=== PATIENT | female | born 1975 | race Caucasian/White ===

== ENCOUNTER 2017-01-19 09:14 | Observation (INO) | payer OTHER ==
[2017-01-19] VITALS (8 sets, daily range): BP systolic 120–141; BP diastolic 80–100; PULSE 99–122; RESP 17–18; TEMP 97.3–98.9; O2SAT 94–98
[~2017-01-19] VITALS: Ht 167.6 cm; Wt 75.0 kg
[2017-01-19] MEDS ORDERED: SODIUM CHLOR 0.9% 1000 ML INJ 1,000 ML IV ONE (09:45)
[2017-01-19] MEDS ORDERED: SODIUM CHLORIDE 0.9% FLUSH 10 ML FLUSH IVF PRN (09:45)
[2017-01-19 10:07] LABS: AUTOMATED NEUTROPHIL # 6.2 TH/MM3 (1.8-7.7); BASOPHIL # 0.1 TH/MM3 (0-0.2); BASOPHIL % 0.8 % (0.0-2.0); EOSINOPHIL # 0.2 TH/MM3 (0-0.4); EOSINOPHIL % 2.1 % (0.0-4.0); HEMATOCRIT 40.7 % (35.0-46.0); HEMO FLAGS DIFF FINAL; LYMPH % 24.4 % (9.0-44.0); LYMPHOCYTE # 2.2 TH/MM3 (1.0-4.8); MEAN CORPUSCULAR HEMOGLOBIN 30.3 PG (27.0-34.0); MEAN CORPUSCULAR HGB CONC 32.9 % (32.0-36.0); MONO % 2.9 % (0.0-8.0); NEUT % 69.8 % (16.0-70.0); PLATELET COUNT 265 TH/MM3 (150-450); RED BLOOD COUNT 4.42 MIL/MM3 (4.00-5.30); WHITE BLOOD COUNT 8.8 TH/MM3 (4.0-11.0)
[2017-01-19 10:16] LABS: APTT (PATIENT) 23.3 SEC (24.3-30.1); PROTHROMBIN TIME - PATIENT 10.6 SEC (9.8-11.6)
[2017-01-19 10:20] LABS: ANION GAP 10 MEQ/L (5-15); AST (GOT) 68 U/L (15-37); BICARBONATE 20.7 MEQ/L (21.0-32.0); BLOOD UREA NITROGEN 25 MG/DL (7-18); CHLORIDE 108 MEQ/L (98-107); GLOMERULAR FILTRATION RATE 54 ML/MIN (>89); MAGNESIUM 1.9 MG/DL (1.5-2.5); POTASSIUM 4.4 MEQ/L (3.5-5.1); SODIUM (NA) 139 MEQ/L (136-145)
--- NOTE | 2017-01-19 10:20 | RADRPT ---
EXAM DATE/TIME: 01/19/2017 09:48 [facility] COMPARISON: No previous studies available for comparison. INDICATIONS : Short of breath and chest discomfort for 2 weeks, smoker, no chest surgery MEDICAL HISTORY : None. SURGICAL HISTORY : None. ENCOUNTER: Initial ACUITY: 2 weeks PAIN SCORE: 4/10 LOCATION: Bilateral chest FINDINGS: A single AP erect portable view of the chest was obtained. The study is Midinspiratory with crowding of the lung vasculature. The heart size is appears mildly prominent. There is mild hazy opacity in th e perihilar regions and both lung bases with no focal consolidation or effusion. This likely is artif actual and due to the Midinspiratory study. The bony thorax is intact with overlying electrocardiogra m leads. CONCLUSION: 1. Single view Midinspiratory study. 2. Possible cardiomegaly which may be due to the Midinspiratory view. There is no definite acute card iopulmonary disease. Dameon Lira MD on January 19, 2017 at 10:17 Board Certified Radiologist. This report was verified electronically.
[2017-01-19 10:24] LABS: ALKALINE PHOSPHATASE 51 U/L (45-117); ALT (GPT) 169 U/L (10-53); TOTAL BILIRUBIN ADULT 0.4 MG/DL (0.2-1.0)
[2017-01-19] MEDS ORDERED: IOHEXOL 350 MG/ML 10 ML VIAL (for RAD DIAG) IV ONE (11:22)
--- NOTE | 2017-01-19 11:28 | RADRPT ---
EXAM DATE/TIME: 01/19/2017 10:58 [facility] COMPARISON: No previous studies available for comparison. INDICATIONS : Back pain for 3 weeks. IV CONTRAST: 59 cc Omnipaque 350 (iohexol) IV RADIATION DOSE: 23.00 CTDIvol (mGy) MEDICAL HISTORY : Cardiovascular disease. shorness of breath SURGICAL HISTORY : ENCOUNTER: Initial ACUITY: 4 - 6 days PAIN SCALE: 5/10 LOCATION: TECHNIQUE: Volumetric scanning of the chest was performed using a pulmonary embolism protocol MIP images were re constructed. Using automated exposure control and adjustment of the mA and/or kV according to patien t size, radiation dose was kept as low as reasonably achievable to obtain optimal diagnostic quality images. FINDINGS: PULMONARY ARTERIES: No filling defects are seen in the pulmonary arteries through the segmental level. LUNGS: Mild atelectasis adjacent to effusions. PLEURAE: Moderate bilateral pleural effusions. MEDIASTINUM: Mild induration of the central mediastinal fat and mild central mediastinal saul enlargement which i s nonspecific in light of the other findings. MUSCULOSKELETAL: Within normal limits for patient age. MISCELLANEOUS: The visualized upper abdominal organs demonstrate no acute abnormality. CONCLUSION: No evidence of pulmonary embolism Cristobal Lam MD on January 19, 2017 at 11:22 Board Certified Radiologist. This report was verified electronically.
[2017-01-19] MEDS ORDERED: LORazepam 2 MG/ML VIAL IV PUSH ONE (11:45)
--- NOTE | 2017-01-19 11:51 | PD ---
HPI Chief Complaint: Respiratory Symptoms Time Seen by Provider: 09:39 Travel History International Travel<30 days: No Contact w/Intl Traveler<30days: No Traveled to known affect area: No History of Present Illness HPI Patient is a 42 year old female present with 3 week history of SOB rapidly worsening. She follows with Dr. Angulo who ordered outpatient workup which the patient has not had results for yes Patient relates a history of anxiety but otherwise states fairly healthy. Patient denies history of IVDA. She states that she exercises regularly on an exercise bike. She is fairly anxious on arrival stating she is very concerned stating "what did i do". Denies cough , denies CP. Symptoms moderate, gradually worsening. PFSH Past Medical History Anxiety: Yes Cardiovascular Problems: Yes Medical other: Yes (varicous vein repair on upper Rt thigh in 11/2016) ?: Unknown Social History Alcohol Use: Yes (on occasion) Tobacco Use: Yes (2-3 cigs a week) Substance Use: No Allergies-Medications (Allergen,Severity, Reaction): Coded Allergies: Sulfa (Verified Allergy, Unknown, Hives, 01/19/17) Reported Meds & Prescriptions Reported Meds & Active Scripts Active Lo Loestrin Fe 1/10 (Norethindrone-Ethinyl Estradiol-Fe) 1-10 Mg-Mcg Tab 1 Tab PO DAILY Ativan (Lorazepam) 0.5 Mg Tab 0.5 Mg PO BID PRN Review of Systems Except as stated in HPI: all other systems reviewed are Neg Physical Exam Narrative GENERAL: WD/WN anxious. SKIN: Warm and dry. HEAD: Atraumatic. Normocephalic. EYES: Pupils equal and round. No scleral icterus. No injection or drainage. ENT: No nasal bleeding or discharge. Mucous membranes pink and moist. NECK: Trachea midline. No JVD. CARDIOVASCULAR: Regular rhythm with tachycardia. No MGR. 2+ edema to bilateral lower extremities. RESPIRATORY: No accessory muscle use. Clear to auscultation. Breath sounds equal bilaterally. GASTROINTESTINAL: Abdomen soft, non-tender, nondistended. Hepatic and splenic margins not palpable. MUSCULOSKELETAL: Extremities without clubbing, cyanosis, or edema. No obvious deformities. NEUROLOGICAL: Awake and alert. No obvious cranial nerve deficits. Motor grossly within normal limits. Five out of 5 muscle strength in the arms and legs. Normal speech. PSYCHIATRIC: Appropriate mood and affect; insight and judgment normal. Data Data Last Documented VS Vital Signs Date Time Temp Pulse Resp B/P Pulse Ox O2 Delivery O2 Flow Rate FiO2 01/19/17 09:55 97 Room Air 01/19/17 09:55 18 01/19/17 09:27 118 01/19/17 09:18 98.7 141/100 Orders B-Type Natriuretic Peptide (01/19/17 09:44) Complete Blood Count With Diff (01/19/17 09:44) Comprehensive Metabolic Panel (01/19/17 09:44) Magnesium (Mg) (01/19/17 09:44) Prothrombin Time / Inr (Pt) (01/19/17 09:44) Act Partial Throm Time (Ptt) (01/19/17 09:44) Troponin I (01/19/17 09:44) Chest, Single Ap (01/19/17 09:44) Ecg Monitoring (01/19/17 09:44) Iv Access Insert/Monitor (01/19/17 09:44) Oximetry (01/19/17 09:44) Oxygen Administration (01/19/17 09:44) Sodium Chloride 0.9% Flush (Ns Flush) (01/19/17 09:45) Ct Pulmonary Angiogram (01/19/17 09:44) Sodium Chlor 0.9% 1000 Ml Inj (Ns 1000 M (01/19/17 09:45) Iohexol 350 Inj (Omnipaque 350 Inj) (01/19/17 11:22) Lorazepam Inj (Ativan Inj) (01/19/17 11:45) Ed Urine Pregnancytest Poc (01/19/17 11:48) Furosemide Inj (Lasix Inj) (01/19/17 12:00) Admit Order (Ed Use Only) (01/19/17 ) Thyroid Stimulating Hormone (01/19/17 11:46) Echo 2d Comp With Doppler (01/19/17 ) Drug Screen, Random Urine (01/19/17 11:46) Labs Laboratory Tests Test 01/19/17 09:50 White Blood Count 8.8 TH/MM3 Red Blood Count 4.42 MIL/MM3 Hemoglobin 13.4 GM/DL Hematocrit 40.7 % Mean Corpuscular Volume 92.0 FL Mean Corpuscular Hemoglobin 30.3 PG Mean Corpuscular Hemoglobin 32.9 % Concent Red Cell Distribution Width 13.0 % Platelet Count 265 TH/MM3 Mean Platelet Volume 9.9 FL Neutrophils (%) (Auto) 69.8 % Lymphocytes (%) (Auto) 24.4 % Monocytes (%) (Auto) 2.9 % Eosinophils (%) (Auto) 2.1 % Basophils (%) (Auto) 0.8 % Neutrophils # (Auto) 6.2 TH/MM3 Lymphocytes # (Auto) 2.2 TH/MM3 Monocytes # (Auto) 0.3 TH/MM3 Eosinophils # (Auto) 0.2 TH/MM3 Basophils # (Auto) 0.1 TH/MM3 CBC Comment DIFF FINAL Differential Comment Prothrombin Time 10.6 SEC Prothromb Time International 1.0 RATIO Ratio Activated Partial 23.3 SEC Thromboplast Time Sodium Level 139 MEQ/L Potassium Level 4.4 MEQ/L Chloride Level 108 MEQ/L Carbon Dioxide Level 20.7 MEQ/L Anion Gap 10 MEQ/L Blood Urea Nitrogen 25 MG/DL Creatinine 1.10 MG/DL Estimat Glomerular Filtration 54 ML/MIN Rate Random Glucose 127 MG/DL Calcium Level 8.8 MG/DL Magnesium Level 1.9 MG/DL Total Bilirubin 0.4 MG/DL Aspartate Amino Transf 68 U/L (AST/SGOT) Alanine Aminotransferase 169 U/L (ALT/SGPT) Alkaline Phosphatase 51 U/L Total Creatine Kinase 126 U/L Troponin I 0.03 NG/ML B-Type Natriuretic Peptide 972 PG/ML Total Protein 6.0 GM/DL Albumin 3.2 GM/DL Thyroid Stimulating Hormone 2.120 uIU/ML 3rd Gen [facility] Medical Decision Making Medical Screen Exam Complete: Yes Emergency Medical Condition: Yes Interpretation(s) EKG shows Sinus tachycardia with LBBB. No sgarbossa criteria. Abnormal ekg. Differential Diagnosis CHF, Edema, JAYLA, liver disease, PE. Narrative Course Last 24 hours Impressions Chest X-Ray 01/19/17943 Signed Impressions: Service Date/Time: Thursday, January 19, 2017 09:48 - CONCLUSION: 1. Single view Midinspiratory study. 2. Possible cardiomegaly which may be due to the Midinspiratory view. There is no definite acute cardiopulmonary disease. Dameon Lira MD CT Angiography 01/19/17943 Signed Impressions: Service Date/Time: Thursday, January 19, 2017 10:58 - CONCLUSION: No evidence of pulmonary embolism Cristobal Lam MD Patient discussed with Dr. Garvin, concerns for acute new CHF. Given lasix. She does have some minimal elevation in LFT in hepatocellular form I think more likely cause is CHF. May need thoracentesis for additional workup. Dr. Garvin agrees for observation status. Diagnosis Primary Impression: CHF (congestive heart failure) Qualified Code: I50.9 - Congestive heart failure, unspecified congestive heart failure chronicity, unspecified congestive heart failure type Additional Impression: Pleural effusion Admitting Information Admitting Physician Requests: Observation Scripts Norethindrone-Ethinyl Estradiol-Fe (Lo Loestrin Fe 09/09)1-10 Mg-Mcg Tab1 Tab PO DAILY #1 PACK Ref 0 Prov:Michelle Nye PA-C 01/19/17 Lorazepam (Ativan)0.5 Mg Tab0.5 Mg PO BID PRN (ANXIETY) #30 TAB Ref 0 Prov:Michelle Nye PA-C 01/19/17 Condition: Stable Paco Baez MD January 19, 2017 11:51
[2017-01-19] MEDS ORDERED: NALOXONE HCL 0.4 MG/ML AMP IV PRN (12:00)
[2017-01-19] MEDS ORDERED: SODIUM CHLORIDE 0.9% FLUSH 10 ML FLUSH IV FLUSH PRN (12:00)
[2017-01-19] MEDS: DOCUSATE SODIUM 100 MG CAP PO SCH (12:00)
[2017-01-19] MEDS ORDERED: BISACODYL 10 MG SUPP RECTAL PRN (12:00)
[2017-01-19] MEDS ORDERED: ONDANSETRON HCL 4 MG/2 ML VIAL IVP PRN (12:00)
[2017-01-19] MEDS ORDERED: FUROSEMIDE 40 MG/4 ML VIAL IV PUSH ONE (12:00)
--- NOTE | 2017-01-19 14:31 | HHI.HP ---
cc: Nella Kumar MD [facility] Primary [facility] Physician Nella Kumar MD Admission Diagnosis New CHF, Pleural Effusions. Diagnoses: Chief Complaint: shortness of breath Travel History International Travel<30 Days: No Contact w/Intl Traveler <30 Da: No Traveled to Known Affected Are: No History of Present Illness Written by Michelle Nye, acting as scribe for Dr. Garvin on 01/19/17 at 14: 40. 42-year-old female with history of anxiety, tobacco use, presents with a 2-3 week history of shortness of breath. The patient denies any recent illness, fevers/chills, cough, or sick contacts. She states over the past 2-3 weeks she has become short of breath, much worse over the past 2 days. She reports severe orthopnea, unable to lie flat or get comfortable in bed. Denies dyspnea on exertion, paroxysmal nocturnal dyspnea, or weight gain. She has noticed some mild leg swelling. She denies chest pains but does have diffuse upper posterior thoracic pain associated with her shortness of breath, described as a "muscular " pain/tightness, worse when trying to lie flat. The patient traveled to [place], 2.5hr flight recently and had some increased leg edema afterwards. She denies any abrupt ascending/descending altitudes or scuba diving. She denies any prior cardiac work up. She did go to her PCP Dr. Kumar's office, seen by the PA, labs were ordered but were still pending as of this morning. The patient only takes Lo Loestrin Fe and Ativan prn. Denies any recent antibiotic use or changes to medications. Denies snoring at night or any hx of sleep apnea. She smokes 3-4 cigarettes per day. Her father has a history of heart disease that started in his 40s. Since her arrival to the ER, labs remarkable for BNP [address]-PA remarkable for moderate bilateral pleural effusions; no pulmonary embolism. She has been given IV Lasix 40mg x1 and she feels her breathing is much improved however still short of breath. Review of Systems Except as stated in HPI: all other systems reviewed are Neg Past Family Social History Past Medical History Anxiety GERD Past Surgical History Varicose vein repair right upper thigh November2016 Tympanostomy as a child Dental extractions Reported Medications Lo Loestrin Fe Ativan 0.5mg q12h prn Allergies: Coded Allergies: Sulfa (Verified Allergy, Unknown, Hives, 01/19/17) Active Ordered Medications Current Medications Medications (Trade) Dose Ordered Sig/Wallace Route Start Time Stop Time Status Last Admin (NS Flush) 2 ml UNSCH PRN IV FLUSH 01/19/17 12:00 (NS Flush) 2 ml BID IV FLUSH 01/19/17 21:00 (Tylenol) 650 mg Q4H PRN PO 01/19/17 12:00 (Zofran Inj) 4 mg Q6H PRN IVP 01/19/17 12:00 (Dulcolax Supp) 10 mg DAILY PRN RECTAL 01/19/17 12:00 (Colace) 100 mg Q12H PO 01/19/17 12:00 (Narcan Inj) 0.4 mg UNSCH PRN IV 01/19/17 12:00 (Pneumovax-23 Inj) 25 mcg ONCE ONCE IM 01/20/17 10:00 01/20/17 10:01 Family History Father with heart disease that started in his 40s with NH and CHF, still living Social History Smokes tobacco,3-4 cigarettes per day Occasional alcohol use, 2 glasses of wine per day on the weekend Denies illicit drug use Works as a deputy for [email or web address] Physical Exam Vital Signs Vital Signs Date Time Temp Pulse Resp B/P Pulse Ox O2 Delivery O2 Flow Rate FiO2 01/19/17 12:13 114 18 140/94 95 Room Air 01/19/17 09:55 97 Room Air 01/19/17 09:55 18 98 Room Air 01/19/17 09:27 118 18 99 Room Air 01/19/17 09:18 98.7 122 18 141/100 97 Physical Exam GENERAL: Well-nourished, well-developed middle aged female patient in [place]. SKIN: Warm and dry. No rash. HEAD: Normocephalic. Atraumatic. EYES: Pupils equal and round. No scleral icterus. No injection or drainage. ENT: No nasal bleeding or discharge. Mucous membranes pink and moist. NECK: Supple. Trachea midline. CARDIOVASCULAR: Regular rate and rhythm. S1, S2 noted. No murmur appreciated. RESPIRATORY: No accessory muscle use. Clear to auscultation. Breath sounds equal bilaterally. GASTROINTESTINAL: Abdomen soft, non-tender, nondistended. Normoactive bowel sounds x4. MUSCULOSKELETAL: No obvious deformities. Trace bilateral lower extremity edema. NEUROLOGICAL: Awake and alert. No obvious cranial nerve deficits. Motor grossly within normal limits. 5/5 muscle strength in bilateral upper and lower extremities. Normal speech. PSYCHIATRIC: Slightly anxious mood; insight and judgment normal. Laboratory Laboratory Tests Test 01/19/17 09:50 White Blood Count 8.8 Red Blood Count 4.42 Hemoglobin 13.4 Hematocrit 40.7 Mean Corpuscular Volume 92.0 Mean Corpuscular Hemoglobin 30.3 Mean Corpuscular Hemoglobin 32.9 Concent Red Cell Distribution Width 13.0 Platelet Count 265 Mean Platelet Volume 9.9 Neutrophils (%) (Auto) 69.8 Lymphocytes (%) (Auto) 24.4 Monocytes (%) (Auto) 2.9 Eosinophils (%) (Auto) 2.1 Basophils (%) (Auto) 0.8 Neutrophils # (Auto) 6.2 Lymphocytes # (Auto) 2.2 Monocytes # (Auto) 0.3 Eosinophils # (Auto) 0.2 Basophils # (Auto) 0.1 CBC Comment DIFF FINAL Differential Comment Prothrombin Time 10.6 Prothromb Time International 1.0 Ratio Activated Partial 23.3 Thromboplast Time Sodium Level 139 Potassium Level 4.4 Chloride Level 108 Carbon Dioxide Level 20.7 Anion Gap 10 Blood Urea Nitrogen 25 Creatinine 1.10 Estimat Glomerular Filtration 54 Rate Random Glucose 127 Calcium Level 8.8 Magnesium Level 1.9 Total Bilirubin 0.4 Aspartate Amino Transf 68 (AST/SGOT) Alanine Aminotransferase 169 (ALT/SGPT) Alkaline Phosphatase 51 Total Creatine Kinase 126 Troponin I 0.03 B-Type Natriuretic Peptide 972 Total Protein 6.0 Albumin 3.2 Thyroid Stimulating Hormone 2.120 3rd Gen Result Diagram: 01/19/1750 01/19/1750 Imaging Last Impressions Chest X-Ray 01/19/1744 Signed Impressions: Service Date/Time: Thursday, January 19, 2017 09:48 - CONCLUSION: 1. Single view Midinspiratory study. 2. Possible cardiomegaly which may be due to the Midinspiratory view. There is no definite acute cardiopulmonary disease. Dameon Lira MD CT Angiography 01/19/17 0944 Signed Impressions: Service Date/Time: Thursday, January 19, 2017 10:58 - CONCLUSION: No evidence of pulmonary embolism Cristobal Lam MD Assessment and Plan Problem List: (1) New onset of congestive heart failure ICD Code: I50.9 Status: Acute (2) Bilateral pleural effusion ICD Code: J90 Status: Acute Assessment and Plan 42-year-old female with history of anxiety, tobacco use, presents with a 2-3 week history of shortness of breath. Acute New Onset CHF: Unclear etiology. BNP elevated at 972. CT-PA images reviewed, shows moderate bilateral pleural effusions. S/p IV Lasix 40mg x1 in the ED with moderate relief. Continue IV Lasix 20mg bid. Initial troponin negative, will continue to trend serial cardiac enzymes and EKGs. EKG reviewed, shows sinus tachycardia HR 120, with LBBB, no previous EKG to compare. Check lipid panel and HgbA1c. Check echocardiogram. Monitor on telemetry. Consider nuclear stress test. Consider cardiology consult depending on findings. Pleural Effusions: suspect secondary to above. Continue diuresis as above. O2 sat stable on room air. Consult pulmonology. Transaminitis: AST 68, ALT 169. Suspect hepatic congestion with heart failure as above. Monitor LFTs. Avoid hepatotoxins including statin at this time. Dehydration: BUN elevated at 25, Cr 1.1. Monitor Is&Os. Check UA. On diuresis as above for CHF, Monitor renal function. Anxiety: chronic, patient takes Ativan 0.5mg prn at home. Continue with IV Ativan 1mg q6h prn. Tobacco Use: counselled on cessation. DVT Prophylaxis: teds/SCDs This note was transcribed by krish Nye. I, Dr. Miguel Garvin personally performed the history, physical exam, and medical decision making; and confirmed the accuracy of the information in the transcribed note. Authenticated by Dr. Miguel Garvin on 01/19/17 at 18:46. Discussed Condition With Patient, patient's , ER Michelle Reed PA-C January 19, 2017 14:31 Miguel Garvin MD January 19, 2017 18:46
[2017-01-19] MEDS ORDERED: LORazepam 2 MG/ML VIAL IV PUSH PRN (15:15)
[2017-01-19] MEDS ORDERED: LORA-392 PO (15:37)
[2017-01-19] MEDS ORDERED: LO LTAB PO (15:37)
--- NOTE | 2017-01-19 16:15 | EC ---
Study Study Date:01/19/2017 STUDY CONCLUSIONS SUMMARY - Left ventricle: The cavity size was dilated. Wall thickness was normal. Systolic function was severely reduced by visual assessment. The estimated ejection fraction was in the range of 20% to 25%. Diffuse hypokinesis. - Mitral valve: Moderate regurgitation. - Tricuspid valve: Mild regurgitation. - Pulmonary arteries: PA peak pressure: 39mm Hg (S). - Pericardium, extracardiac: A small pericardial effusion was identified posterior to the heart. If LV function is below 40, please consider prescribing an ACEI or ARB or document rationale for non-use. PROCEDURE DATA STUDY STATUS: Elective. Procedure: Transthoracic echocardiography. Image quality was good. Scanning was performed from the parasternal, apical, and subcostal acoustic windows. Study completion: The patient tolerated the procedure well. Transthoracic echocardiography. M-mode, complete 2D, complete spectral Doppler, and color Doppler. Patient status: Inpatient. CARDIAC ANATOMY LEFT VENTRICLE: The cavity size was dilated. Wall thickness was normal. Systolic function was severely reduced by visual assessment. The estimated ejection fraction was in the range of 20% to 25%. Diffuse hypokinesis. AORTIC VALVE: Trileaflet; normal thickness leaflets. Doppler: Transvalvular velocity was within the normal range. There was no stenosis. No regurgitation. AORTA: Aortic root: The aortic root was normal in size. MITRAL VALVE: Structurally normal valve. Doppler: Transvalvular velocity was within the normal range. There was no evidence for stenosis. Moderate regurgitation. LEFT ATRIUM: The atrium was normal in size. RIGHT VENTRICLE: The cavity size was normal. Wall thickness was normal. PULMONIC VALVE: Doppler: Transvalvular velocity was within the normal range. There was no evidence for stenosis. No regurgitation. TRICUSPID VALVE: Structurally normal valve. Doppler: Transvalvular velocity was within the normal range. Mild regurgitation. PULMONARY ARTERY: Systolic pressure was at the upper limits of normal. RIGHT ATRIUM: The atrium was normal in size. PERICARDIUM: A small pericardial effusion was identified posterior to the heart. SYSTEMIC VEINS: Inferior vena cava: The vessel was normal in size. BASIC MEASUREMENTS ADULT Normal Left ventricle LV internal dimension, ED, chordal level, *53.9 mm 43-52 PLAX LV internal dimension, ES, chordal level, *48.8 mm 23-38 PLAX Fractional shortening, chordal level, PLAX *9 % >29 LV posterior wall thickness, ED 9.31 mm IVS/LVPW ratio, ED 0.94 <1.3 Ventricular septum Septal thickness, ED 8.79 mm Aortic valve Leaflet separation 20 mm 15-26 Right ventricle RV internal dimension, ED, PLAX 30.7 mm 19-38 BASIC MEASUREMENTS ADULT Normal Aortic valve Leaflet separation 20 mm 15-26 Aorta Root diameter, ED 31 mm 20-37 Left atrium Anterior-posterior dimension, ES *45 mm 19-40 LA/aortic root ratio 1.45 DOPPLER MEASUREMENTS ADULT Normal Main pulmonary artery Pressure, S *39 mm Hg =30 Tricuspid valve Regurgitant peak velocity 271 cm/s Peak RV-RA gradient, S 29 mm Hg Systemic veins Estimated CVP 10 mm Hg Right ventricle RV pressure, S *39 mm Hg <30 LEGEND: Mean values are shown as u=mean value. Asterisk (*) kaur values outside specified normal range. Prepared and signed by Jas Mills [id number]
[2017-01-19] MEDS: FUROSEMIDE 20 MG/2 ML VIAL IV PUSH SCH (18:21)
[2017-01-19 18:45] LABS: BACTERIA, URINE RARE /hpf; BLOOD, URINE NEG (NEG); COMMENT (UR) CULT NOT INDICATED; CULTURE IF INDICATED CULT NOT INDICATED; GLUCOSE,URINE NEG (NEG); KETONE, URINE NEG (NEG); NITRITE,URINE NEG (NEG); SQUAMOUS EPITHELIAL CELL URINE 3 /hpf (0-5); URINE COLOR LIGHT-YELLOW (YELLW/STRAW)
[2017-01-19 18:53] LABS: AMPHETAMINE, URINE NEG (NEG); BARBITURATES, URINE NEG (NEG); COCAINE, URINE NEG (NEG)
[2017-01-19 19:43] LABS: CREATINE KINASE 145 U/L (26-192)
[2017-01-19 19:55] LABS: CKMB 1.1 NG/ML (0.5-3.6)
[2017-01-19] MEDS: SODIUM CHLORIDE 0.9% FLUSH 10 ML FLUSH IV FLUSH SCH (20:32)
[2017-01-19] MEDS: ACETAMINOPHEN 325 MG TAB PO PRN (20:33)
--- NOTE | 2017-01-19 21:59 | MB ---
cc: KARL HASKINS DATE OF CONSULTATION 01/19/[address] Garvin REASON FOR CONSULTATION Evaluate for pleural effusion. HISTORY OF THE PRESENT ILLNESS Ms. Espinosa is a 42-year-old female with history of anxiety, gastroesophageal reflux disease. The patient came to the hospital with 2-3 weeks history of shortness of breath. Prior to that she was doing very well. She had some cold-like symptoms, more so allergy symptoms, swelling around her nose and itching in the eyes. Did not have fever or chills. Did not have any chest pain. She felt that she could not take a deep enough breath because of the pressure in her throat not in the chest. Did not have any chest pain. She has orthopnea and paroxysmal nocturnal dyspnea. With these symptoms she came to the hospital. She had a workup done. Her chest x-ray shows no acute cardiopulmonary process. CT of the chest shows no pleural effusion. It does show bilateral pleural effusion. It does not show any pulmonary embolism but it shows bilateral pleural effusions. LABORATORY DATA Her CBC showed a white blood cell count 8.8, hemoglobin 13.4, hematocrit 40.7, MCV 92, platelets 265. Sodium 139, potassium 4.4, chloride 108, CO2 20, BUN 25, creatinine 1.10. INR is 1.0. BNP 972. Troponin 0.03. She had an echocardiogram done which shows her RVSP 39, ejection fraction is decreased to 20-25%. PAST MEDICAL HISTORY Significant for: History of anxiety and depression. MEDICATIONS At home she takes: 1. Ativan. 2. She was taking one hormone pill. Currently she is takin. Lasix 20 mg a day. 2. Lorazepam 1 mg q.6h p.r.n. 3. Lasix IV. ALLERGIES SHE IS ALLERGIC TO SULFA. SOCIAL HISTORY She has history of smoking three to four cigarettes a day. Drinks socially. No drug use. 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 FAMILY HISTORY She is . She has three children. Has four siblings. Father has heart problems. Both parents are alive. REVIEW OF SYSTEMS Her weight is stable. She is trying to lose weight and has lost about 10 pounds weight. No headache or dizziness. No DVT, pulmonary emboli. No seizure, stroke or epilepsy. PHYSICAL EXAMINATION GENERAL: Well-built, well-nourished female, anxious, not in acute distress. VITAL SIGNS: Blood pressure 124/90, heart rate 115, respiration 18, temperature 98.9. HEENT: Examination pupils are equal and reactive. Oral mucosa, nasal mucosa normal. NECK: Supple. JVP is raised. CHEST: Breath sounds decreased at the bases more so on the right base and the left has a few rales. CARDIOVASCULAR: S1-S2 normal. She has S3 gallop. ABDOMEN: Soft, nontender, nondistended. Bowel sounds are present. EXTREMITIES: Trace pedal edema. IMPRESSION 1. Small bilateral pleural effusions likely from CHF. 2. New onset congestive heart failure. 3. Cardiomyopathy. 4. Mild pulmonary hypertension. PLAN She will need cardiac evaluation for her new congestive heart failure and cardiomyopathy. Will diurese her. Monitor her pleural effusion. If the effusion increases then we will consider thoracentesis. Further treatment will depend on the course in the hospital. Thank you Dr. Garvin for this consultation. MD JOSE Granda/LASHAWN /5:32 PM /9:38 PM
[2017-01-20 04:53] VITALS: BP 118/80; PULSE 94; RESP 17; TEMP 97.3; O2SAT 93
[2017-01-20 08:00] VITALS: BP 136/94; PULSE 107; RESP 17; TEMP 97.7; O2SAT 96
[2017-01-20] MEDS: ACETAMINOPHEN 325 MG TAB PO PRN (08:03)
[2017-01-20 08:04] LABS: BICARBONATE 24.1 MEQ/L (21.0-32.0); HDL CHOLESTEROL 45.7 MG/DL (40.0-60.0); POTASSIUM 3.6 MEQ/L (3.5-5.1)
[2017-01-20] MEDS: SODIUM CHLORIDE 0.9% FLUSH 10 ML FLUSH IV FLUSH SCH (08:05)
[2017-01-20] MEDS: FUROSEMIDE 20 MG/2 ML VIAL IV PUSH SCH (08:05)
--- NOTE | 2017-01-20 08:13 | MB ---
cc: TRENT ESPARZA MD DATE OF CONSULTATION 01/20/2017 HISTORY This is a 42-year-old woman who has been in the hospital with shortness of breath. She noted approximately three weeks ago that she had some problems with what she felt might be symptoms of an impending upper respiratory infection. This resolved, but approximately two weeks ago began having some shortness of breath with exertion. She saw her primary care physician and blood work was initiated. However yesterday she continued to have problems with shortness of breath and not feeling well and has come to the emergency department. Chest x-ray in the emergency department shows some mild bilateral pleural effusions. No robinson congestive failure was present. Her BMP was elevated at 952. An echocardiogram was done revealing an EF of 20-25%. We have been asked to see her in that regard. No chest pain has been present. She denies any prior history of heart disease. Her risk factors for coronary disease are significant only for a father who had premature coronary disease with initiation of heart disease in his 40s culminating with several bouts of congestive failure, and a four-vessel bypass. He, however, is still alive at age 90. The patient herself smokes three to four cigarettes per day. She has no history of hypertension, diabetes or hyperlipidemia. She drinks two glasses of wine on the weekends. She does not use recreational drugs. CURRENT MEDICATIONS Include only Ativan and Loestrin. ALLERGIES SULFA PAST SURGICAL HISTORY Significant for a varicose vein repair right upper thigh last month and it is somewhat tender. A CTA was done which was otherwise unremarkable. PHYSICAL EXAM On physical exam, she is awake and alert. She is in no acute distress. VITAL SIGNS: Her blood pressure is 118/80, pulse is 90 and regular. NECK: There is no neck vein distension. LUNGS: Clear. CARDIOVASCULAR: Exam reveals regular rate and rhythm. There is no significant murmur present. No gallop was noted. ABDOMEN: Soft. There is no tenderness. EXTREMITIES: Reveal no edema. There is some mild tenderness to the inside of her right thigh, however, there is no evidence for redness, cords or swelling. ASSESSMENT/PLAN The patient has a cardiomyopathy likely nonischemic and probably viral in nature. At this point in time, she is stable. She has a child graduating from school [facility] [employer] and wishes to attend that ceremony. I think that would be permissible with further workup as an outpatient to rule out the possibility of ischemic disease. In the meantime, she has been started on Lasix 20 mg daily and I certainly agree with that dose. I have added lisinopril 5 mg daily to her regimen. We will see her back in the office next week and had discuss life vest, as well as hopefully adding carvedilol to her regimen to be able to maximize her cardiomyopathy regimen. Thank you for allowing me to see her in consultation. MD JASON Zaidi/PASQUALE /7:38 AM /7:56 AM
[2017-01-20] MEDS ORDERED: LISINOPRIL 5 MG TAB PO SCH (09:00)
--- NOTE | 2017-01-20 09:34 | HHI.PR ---
Subjective Remarks Follow-up for new onset CHF. The patient is seen with significant other at bedside. The patient has no complaints today. She denies any chest pain, shortness breath, or lower extremity swelling. She wants to follow up with cardiology as outpatient. All questions answered. Objective Vitals Vital Signs Date Time Temp Pulse Resp B/P Pulse Ox O2 Delivery O2 Flow Rate FiO2 01/20/17 08:00 97.7 107 17 136/94 96 01/20/17 04:53 97.3 94 17 118/80 93 01/19/17 23:43 98.1 99 17 120/80 96 01/19/17 23:37 103 01/19/17 21:26 94 01/19/17 19:53 97.3 108 18 122/87 96 01/19/17 16:29 98.9 115 18 124/90 97 01/19/17 12:13 114 18 140/94 95 Room Air 01/19/17 09:55 97 Room Air 01/19/17 09:55 18 98 Room Air 01/19/17 09:27 118 18 99 Room Air I/O 01/19/17 01/19/17 01/19/17 01/20/17 01/20/17 01/20/17 06:59 14:59 22:59 06:59 14:59 22:59 Intake Total 480 ml Balance 480 ml Intake Oral 480 ml Result Diagram: 01/19/17 0950 01/20/17 0555 Imaging Last Impressions Chest X-Ray 01/19/17943 Signed Impressions: Service Date/Time: Thursday, January 19, 2017 09:48 - CONCLUSION: 1. Single view Midinspiratory study. 2. Possible cardiomegaly which may be due to the Midinspiratory view. There is no definite acute cardiopulmonary disease. Dameon Lira MD CT Angiography 01/19/17943 Signed Impressions: Service Date/Time: Thursday, January 19, 2017 10:58 - CONCLUSION: No evidence of pulmonary embolism Cristobal Lam MD Objective Remarks GENERAL: Well-developed well-nourished. In no acute distress. SKIN: Warm and dry. No lesions noted. HEENT: Normocephalic. Pupils equal and round. Mucous membranes pink and moist. CARDIOVASCULAR: Regular rate and rhythm. No murmur appreciated. RESPIRATORY: No accessory muscle use. Clear to auscultation. Slightly diminished breath sounds in the right base. GASTROINTESTINAL: Abdomen soft, non-tender, nondistended. Bowel sounds x4. MUSCULOSKELETAL: No obvious deformities. No clubbing or cyanosis. Trace edema. NEUROLOGICAL: Awake and alert. No focal neurological deficits. Moves upper and lower extremities spontaneously. Normal speech. PSYCHIATRIC: Slightly anxious mood and affect; insight and judgment normal. A/P Problem List: (1) New onset of congestive heart failure ICD Code: I50.9 Status: Acute (2) Bilateral pleural effusion ICD Code: J90 Status: Acute Assessment and Plan 42-year-old female with history of anxiety, tobacco use, presents with a 2-3 week history of shortness of breath. Acute New Onset CHF: Unclear etiology. BNP elevated at 972. CT-PA reviewed, shows moderate bilateral pleural effusions. Symptoms improving with IV diuresis , continue Lasix. Troponin negative 3. Liver profile essentially within normal limits. Hemoglobin A1c pending. Echocardiogram shows severely reduced systolic function 2024 %. Cardiology consulted, discussed with Dr. Mendoza. Continue diuresis and start lisinopril. Dr. Mendoza to follow the patient in the office for addition of beta karina and consideration for ischemic workup. Monitor on telemetry. Educated on fluid and sodium intake. Pleural Effusions: suspect secondary to above. Continue diuresis as above. O2 sat stable on room air. Consulted pulmonology, recommended cardiology evaluation and treatment for CHF. Transaminitis: AST 68, ALT 169. Suspect hepatic congestion with heart failure as above. Monitor LFTs, repeat CMP as outpatient. Avoid hepatotoxins including statin at this time. Dehydration: BUN elevated at 25, Cr 1.1. Monitor Is&Os. UA are all clear. Renal function improved with diuresis, likely cardiorenal. Anxiety: chronic, patient takes Ativan 0.5mg prn at home, continue. Tobacco Use: counselled on cessation. DVT Prophylaxis: teds/SCDs Discharge Planning Discharge patient to home Condition on discharge: Improved Heart healthy Diet as tolerated Regular activity Rx written: Lasix, lisinopril Follow-up with primary care physician and cardiology Cirilo Myers January 20, 2017 09:34
[2017-01-20] MEDS ORDERED: FURO20TA PO (09:35)
[2017-01-20] MEDS ORDERED: LISI-519 PO (09:35)
[2017-01-20] MEDS ORDERED: PNEUMOCOCCAL POLYVALENT INJ 25 MCG/0.5 ML SYR IM ONE (10:00)
[2017-01-20 11:42] VITALS: BP 113/74; PULSE 106; RESP 18; TEMP 97.8; O2SAT 96
[2017-01-20] MEDS: DOCUSATE SODIUM 100 MG CAP PO SCH ×2 (12:41)
--- NOTE | 2017-01-20 15:44 | EKG ---
Date Performed: 01/19/2017 Time Performed: 16:25:53 PTAGE: 42 years EKG: SINUS TACHYCARDIA LEFT ATRIAL ENLARGEMENT LEFT BUNDLE BRANCH BLOCK ABNORMAL ECG Compared to prior tracing no significant change PREVIOUS TRACING 01/19/2017 09.33.47 DOCTOR: Sergei Deleon Interpretating Date/Time 01/20/2017 15:43:56
--- NOTE | 2017-01-20 15:44 | EKG ---
Date Performed: 01/19/2017 Time Performed: 21:41:59 PTAGE: 42 years EKG: SINUS TACHYCARDIA LEFT ATRIAL ENLARGEMENT MARKED LEFT AXIS DEVIATION LEFT BUNDLE BRANCH BLO CK ABNORMAL ECG Compared to prior tracing no significant change PREVIOUS TRACING : 01/19/2017 16.25 DOCTOR: Sergei Deleon Interpretating Date/Time 01/20/2017 15:44:12
--- NOTE | 2017-01-20 15:44 | EKG ---
Date Performed: 01/19/2017 Time Performed: 09:33:47 PTAGE: 42 years EKG: SINUS TACHYCARDIA MARKED LEFT AXIS DEVIATION LEFT BUNDLE BRANCH BLOCK ABNORMAL ECG NO PREVIOUS TRACING : DOCTOR: Sergei Deleon Interpretating Date/Time 01/20/2017 15:43:28
[2017-01-20 16:43] LABS: HEMOGLOBIN A1a 1.3 %; HEMOGLOBIN A1b 0.9 %; HEMOGLOBIN Ao 83.7 %; HEMOGLOBIN LA1C 2.2 %; HEMOGLOBIN P3 5.1 %
== END 2017-01-20 12:44 | disposition home or self-care (01) ==
LOC: NEPE 09:14 → NEDA 11:51 → NEPGCP 13:11
PROVIDERS: ADMIT Internal Medicine; ATTEND Internal Medicine
DX: I50.9 Heart failure, unspecified (principal); I42.9 Cardiomyopathy, unspecified; I27.2 Other secondary pulmonary hypertension; F41.9 Anxiety disorder, unspecified; F17.210 Nicotine dependence, cigarettes, uncomplicated; R74.0 Nonspecific elevation of levels of transaminase and lactic acid dehydrogenase [LDH]; E86.0 Dehydration; F32.9 Major depressive disorder, single episode, unspecified; K21.9 Gastro-esophageal reflux disease without esophagitis; Z88.2 Allergy status to sulfonamides
CPT/HCPCS: 71010; 71275; 80048; 80053; 80061; 80307; 81001; 82550; 82552; 83036; 83735; 83880; 84443; 84484; 85025; 85610; 85730; 90732; 93005; 93306; 96360; 99285; G0378; J1940; J2060; J7030; Q9967

== ENCOUNTER 2017-07-17 08:55 | Day surgery (SDC) | payer OTHER ==
[~2017-07-17] VITALS: Ht 167.6 cm; Wt 63.4 kg
[~2017-07-17 08:55] MED LIST: FURO20TA PO; LISI-519 PO; LO LTAB PO; LORA-392 PO
[2017-07-17] MEDS ORDERED: IOHEXOL 350 MG/ML 100 ML BTL (for Cath Lab) OTHER ONE (08:56)
[2017-07-17 10:00] VITALS: BP 125/74; PULSE 80; RESP 18; TEMP 98.4; O2SAT 100
[2017-07-17] MEDS ORDERED: CARV6.25 PO (10:11)
[2017-07-17] MEDS ORDERED: SACU1TAB PO (10:11)
[2017-07-17 10:16] LABS: AUTOMATED NEUTROPHIL # 5.7 TH/MM3 (1.8-7.7); BASOPHIL % 0.3 % (0.0-2.0); EOSINOPHIL # 0.1 TH/MM3 (0-0.4); EOSINOPHIL % 1.9 % (0.0-4.0); HEMATOCRIT 38.8 % (35.0-46.0); HEMO FLAGS DIFF FINAL; LYMPH % 18.7 % (9.0-44.0); LYMPHOCYTE # 1.4 TH/MM3 (1.0-4.8); MEAN CELL VOLUME 92.1 FL (80.0-100.0); MEAN CORPUSCULAR HEMOGLOBIN 31.4 PG (27.0-34.0); MEAN CORPUSCULAR HGB CONC 34.1 % (32.0-36.0); MONO % 3.8 % (0.0-8.0); NEUT % 75.3 % (16.0-70.0); PLATELET COUNT 261 TH/MM3 (150-450); RED BLOOD COUNT 4.21 MIL/MM3 (4.00-5.30); WHITE BLOOD COUNT 7.6 TH/MM3 (4.0-11.0)
[2017-07-17 10:26] LABS: APTT (PATIENT) 24.4 SEC (24.3-30.1); PROTHROMBIN TIME - PATIENT 10.6 SEC (9.8-11.6)
[2017-07-17 10:35] LABS: ANION GAP 8 MEQ/L (5-15); BICARBONATE 25.4 MEQ/L (21.0-32.0); BLOOD UREA NITROGEN 13 MG/DL (7-18); CHLORIDE 106 MEQ/L (98-107); GLOMERULAR FILTRATION RATE 65 ML/MIN (>89); POTASSIUM 4.2 MEQ/L (3.5-5.1); SODIUM (NA) 139 MEQ/L (136-145)
[2017-07-17 10:40] LABS: BETA HCG QUANT LESS THAN 1 MIU/ML (0-5)
[2017-07-17] MEDS ORDERED: NS 1000P @30 MLS/HR (KVO) IV SCH (11:00)
[2017-07-17] MEDS ORDERED: HEPARIN-NS/PF INJ 1,000 ML ONE (12:38)
[2017-07-17] MEDS ORDERED: MIDAZOLAM HCL 5 MG/5 ML VIAL ONE (12:38)
[2017-07-17] MEDS ORDERED: MIDAZOLAM HCL 2 MG/2 ML VIAL ONE (13:44)
--- NOTE | 2017-07-17 14:23 | CATHPROC ---
[employer] HIS Report Study Information Study Number Admission Scheduled Start Study Start [id number] Jul 17 2017 8:55AM 07/17/2017 Jul 17 2017 12:36PM [place] Service Cardiac Catheterization Admit Source Facility Department Other [facility] - Finishing Operator Physician and Clinical Staff Initial Emma Zapata Liquefier Kendall RN, Honorio Recorder Ivy Jason,RT(R) (BS) Scrub Nany Meléndez,RT(R) Procedures Performed Procedure Location (Site) Vessel Name Angiogram LV LV Ventricle Coronary Angiograms LCA Left Coronary Coronary Angiograms RCA Right Coronary Equipment Time Traffic Analysis Technician Description Size Mfg Part Number Used/Scraped [id number] 13:06 [employer]ILL[employer] SWAN TASHI CATHETER FR 7 Used *[id number] TRANSDUCER, TRUWAVE [id number] 13:06 SNOW VILLALOBOS * Used W/STOCKCOCK *[id number] TRANSDUCER, TRUWAVE [id number] 13:06 SNOW VILLALOBOS * Used W/STOCKCOCK *[id number] 14:07 [employer] MEDICAL VASCADE, FR5 CLOSURE SYSTEM FR 5 Used *[id number] *[id number] *[id number] 13:06 [employer] PACK, CCL CUSTOM * Used *[id number] 13:06 [facility] PACER PEN, SKIN DUAL W/ RULER * Used *[id number] 12:40 [employer] PIGTAIL ANG. CATHETER FR 5 Used *[id number] 13:06 [employer] WIRE, 3MMJ .035 180CM 180CM Used *[id number] PROBE COVER, STERILE [id number] 13:06 [employer] * Used ULTRASOUND W/ GEL *[id number] 13:06 NAMIC MANIFOLD, 2 PORT * Used *[id number] 13:06 NAMIC MANIFOLD, 4 PORT * Used *[id number] 13:06 NAMIC TUBING, HIGH PRESSURE 48" 48" Used *[id number] 13:06 [employer] OMNIPAQUE, 350 MG, 150ML 150ML [id number] Used [id number] 13:06 [employer],WARM AIR CCL * Used *[id number] 13:06 TERUMO MEDICAL SHEATH, FR5 TERUMO (10CM) FR 5 Used *[id number] 13:06 [employer]UMO MEDICAL SHEATH, FR7 TERUMO (10CM) FR 7 Used *[id number] 13:06 TERUMO MEDICAL SHEATH, FR7 TERUMO (10CM) FR 7 Used *[id number] History: Current Medications Medication Dosage/Unit Route Frequency Last Date/Time Taken LASIX CARVEDILOL History: Allergies Allergy Reaction Sulfa Hives Sulfa (Sulfonamide Antibiotics) Hives History: Risk Factors Family History of Hypertension Dyslipidemia Previous [place] Previous Heart Failure Premature CAD No No No No Yes Prior Valve Prior PCI Prior CABG Surgery No No No Cerebrovascular Peripheral Artery Chronic Lung On Dialysis Diabetes Disease Disease Disease No No No No No History: Symptoms/Diagnosis Selection Items Chest pain History: Stress Tests Stress or Imaging Studies Performed Yes Standard Exercise Stress Test No Stress Echo No Stress Test SPECT Stress Test SPECT Result Stress Test SPECT Ischemia Risk/Extent Yes Positive Intermediate Stress Test CMR No Cardiac CTA Coronary Calcium Score No No History: Other Current Smoker Method Quit Packs a Day Years Used Pack Years No Cigarettes 1 Years Ago 1 5 5 Labs Hgb (g/dl) Hct (%) WBC (l/cumm) Platelets (thousands) 11.60-17.00 35.00-51.00 4.00-11.00 150.00-450.00 13.2 38.8 7.6 261 Glucose (mg/dl) BUN (mg/dl) Creatinine (mg/dl) BUN:Creatinine (1:x) 74.00-106.00 7.00-18.00 0.50-1.30 10.00-20.00 109 13 0.9 14.4 Na (meq/l) K (meq/l) 136.00-145.00 3.50-5.10 139 4.2 INR (PTT:PT) 0.90-1.10 1 CPK-MB (ng/ML) 0.50-3.60 Not Drawn Medication Medication Total Dose (Bolus/Oral) Medication Total Dosage/Unit 1% XYLOCAINE 20 mL FENTANYL 200 mcg HEPARIN 3000 units VERSED 7 mg Medications (Bolus/Oral) Medication Time Given Dosage/Unit Administered By Reason FENTANYL 07/17/2017 1:07:50 PM 50 mcg Honorio Argueta RN 50 mcg FENTANYL given in lab by Honorio Arugeta RN in Right Antecubital via Peripheral IV. VERSED 07/17/2017 1:08:50 PM 2 mg Honorio Argueta RN 2 mg VERSED given in lab by Kendall VILLAFANA, Honorio in Right Antecubital via Peripheral IV. FENTANYL 07/17/2017 1:11:42 PM 50 mcg Kendall VILLAFANA, Honorio 50 mcg FENTANYL given in lab by Kendall VILLAFANA, Honorio in Right Antecubital via Peripheral IV. VERSED 07/17/2017 1:12:36 PM 1 mg Kendall VILLAFANA, Honorio 1 mg VERSED given in lab by Kendall VILLAFANA, Honorio in Right Antecubital via Peripheral IV. 1% XYLOCAINE 07/17/2017 1:12:53 PM 20 mL Emma Mcfarlane 20 mL 1% XYLOCAINE given in lab by Emma Mcfarlane in Right Groin via Subcutaneous. FENTANYL 07/17/2017 1:15:10 PM 50 mcg Kendall VILLAFANA, Honorio 50 mcg FENTANYL given in lab by Kendall VILLAFANA, Honorio in Right Antecubital via Peripheral IV. VERSED 07/17/2017 1:16:16 PM 1 mg Kendall VILLAFANA, Honorio 1 mg VERSED given in lab by Kendall VILLAFANA, Honorio in Right Antecubital via Peripheral IV. HEPARIN 07/17/2017 1:21:18 PM 3000 units Kendall VILLAFANA, Honorio 3000 units HEPARIN given in lab by Kenadll VILLAFANA, Honorio in Right Antecubital via Peripheral IV. FENTANYL 07/17/2017 1:32:37 PM 25 mcg Kendall VILLAFANA, Honorio 25 mcg FENTANYL given in lab by Kendall VILLAFANA, Honorio in Right Antecubital via Peripheral IV. VERSED 07/17/2017 1:33:16 PM 1 mg Kendall VILLAFANA, Honorio 1 mg VERSED given in lab by Kendall VILLAFANA, Honorio in Right Antecubital via Peripheral IV. FENTANYL 07/17/2017 1:40:48 PM 25 mcg Kendall VILLAFANA, Honorio 25 mcg FENTANYL given in lab by Kendall VILLAFANA, Honorio in Right Antecubital via Peripheral IV. VERSED 07/17/2017 1:45:16 PM 1 mg Kendall VILLAFANA, Honorio 1 mg VERSED given in lab by Kendall VILLAFANA, Honorio in Right Antecubital via Peripheral IV. VERSED 07/17/2017 1:57:27 PM 1 mg Kendall VILLAFANA, Honorio 1 mg VERSED given in lab by Kendall VILLAFANA, Honorio in Right Antecubital via Peripheral IV. Medication (Drip) Medication Time Given Dosage/Unit Concentration/Unit Diluent (ml) Solutio n 07/17/2017 12:36:54 IV Solutions 0 mL (IV) 500 NaCl .9 PM IV Solutions given in lab by Honorio Argueta RN in Right Antecubital via Peripheral IV. Pump/Drip Flow = 50 ml/hr using NaCl .9. Initial Case Assessment Cardiovascular HR Rhythm NIBP Chest Pain 95 bbb 123/68 0 Edema Present Skin color Skin None Normal Warm Dry Circulatory - Right Pulses Dorsalis Pedis Femoral 2 2 Scale (0,1,2,3,4,d) Circulatory - Left Pulses Dorsalis Pedis Femoral 2 Scale (0,1,2,3,4,d) Circulatory - Lower Extremities Color Lower Right Color Lower Left Normal Normal Neurological State Oriented to time-place- Alert Moves all extremities person Respiration - General Respiration Rate SpO2 (%) (B/min) 14 100 Chronological Log Time Study Chronological Log 12:36:14 Patient arrived via Bed. 12:36:15 Patient Name, D.O.B, / Armband Verified By R.N. 12:36:16 Consent signed by the physician and the patient and verified by the Finishing Operator staff. 12:36:17 Pre-op and post- op instructions given; patient acknowledges understanding of instruction s. 12:36:18 Verbal Stimulation=2 Physical Stimulation=2 Airway=2 Respiration=2 TOTAL=8. (0=absent, 1= limited, 2=present) 12:36:19 Presedation assessment performed by Finishing Operator RN. 12:36:29 Patient has been NPO for More than 6Hrs. 12:36:31 Skin Breakdown none per pt 12:36:49 Patient Warmer Placed on the Table. 12:36:50 Christiano Prominences Protected 12:36:53 A # 20 IV was noted in the Antecubital (right). Grade = 0 IV Solutions given in lab by Honorio Argueta RN in Right Antecubital via Peripheral IV. Pump/Drip Flow = 50 ml/hr using 12:36:54 NaCl .9. 12:36:54 History and physical on the chart or being dictated. Assessment: Initial Case, HR=95 BPM, Rhythm=bbb, NVQM=060/68 mmhg, Chest Pain=0, Edema=None, Color=Normal, Skin = Warm, Dry Right Pulses: Tavo Ped=2, Femoral=2 Left Pulses: Post Tib=2, Femoral=2 12:36:55 Lower Right Extremities: Color=Normal Lower Left Extremities: Color=Normal Neurological: State=Alert, Ox3, MACK Respiration: Resp=14 B/min, WiW9=150 % Vitals capture started with the following parameters, Patient=Adult, Interval=5 min, Initial Pr sknjiy=307 mmHg, 12:40:01 Deflation Rate=5 mmHg, Cuff placed on Left Arm 12:40:38 Vitals capture stopped. Vitals capture started with the following parameters, Patient=Adult, Interval=5 min, Initial Pr vvitms=738 mmHg, 12:45:04 Deflation Rate=5 mmHg, Cuff placed on Left Arm 12:45:47 HR=90 bpm, HOPX=153/68 mmhg, EoM2=784.0 %, Resp=14 B/min, Pain=0, Melisa=10, Ramirez=2 12:48:36 Bilateral groins prepped with 2% chlorhexidine, and draped after a 3 minute waiting time. 12:50:37 HR=85 bpm, ABET=061/67 mmhg, LnL6=356.0 %, Resp=9 B/min, Pain=0, Melisa=10, Ramirez=2 12:55:38 HR=95 bpm, EXPD=508/73 mmhg, BkF5=164.0 %, Resp=9 B/min, Pain=0, Melisa=10, Ramirez=2 12:59:07 Pressure channel 1 zeroed. 13:00:38 HR=90 bpm, JRWF=146/72 mmhg, XzL9=766.0 %, Resp=12 B/min, Pain=0, Melisa=10, Ramirez=2 13:05:39 HR=90 bpm, OGPT=062/68 mmhg, SpO2=98.0 %, Resp=2 B/min, Pain=0, Melisa=10, Ramirez=2 13:07:50 50 mcg FENTANYL given in lab by Honorio Argueta RN in Right Antecubital via Peripheral IV. 13:08:11 MD arrived. 13:08:30 Pressure channel 2 zeroed. 13:08:50 2 mg VERSED given in lab by Honorio Argueta RN in Right Antecubital via Peripheral IV. 13:10:40 HR=91 bpm, ZXKV=229/67 mmhg, SpO2=98.0 %, Resp=8 B/min, Pain=0, Melisa=10, Ramirez=2 Time Out. Correct patient, correct procedure, correct physician, power injector loaded with con trast with surgical team 13:11:35 present. Time Out Concurred by MD and individual staff in procedure. 13:11:42 50 mcg FENTANYL given in lab by Honorio Argueta RN in Right Antecubital via Peripheral IV. 13:11:48 Case Start 13:12:36 1 mg VERSED given in lab by Honorio Argueta RN in Right Antecubital via Peripheral IV. 13:12:53 20 mL 1% XYLOCAINE given in lab by Emma Mcfarlane in Right Groin via Subcutaneous. 13:14:03 Reference ECG taken 13:14:27 Access site was Right Femoral Artery using ultrasound 13:14:41 A SHEATH, FR5 TERUMO (10CM) FR 5 was advanced into the Fem Art (right) using the Percutaneo us technique. 13:15:10 50 mcg FENTANYL given in lab by Honorio Argueta RN in Right Antecubital via Peripheral IV. 13:15:41 HR=94 bpm, NIBP=99/74 mmhg, SpO2=97.0 %, Resp=18 B/min, Pain=0, Melisa=10, Ramirez=2 13:16:16 1 mg VERSED given in lab by Honorio Argueta RN in Right Antecubital via Peripheral IV. 13:16:38 Access site was Right Femoral Vein. 13:17:00 A SHEATH, FR7 TERUMO (10CM) FR 7 was advanced into the Fem Vein (right) using the Percutane ous technique. 13:17:46 A SWAN TASHI CATHETER FR 7 was inserted via Fem Art (right) A PIGTAIL ANG. CATHETER FR 5 was advanced over a wire. OMNIPAQUE, 350 MG, 150ML 150ML was used for 13:19:25 injections. 13:20:36 HR=78 bpm, PJEH=072/71 mmhg, SpO2=96.0 %, Resp=10 B/min, Pain=0, Melisa=10, Ramirez=2 13:21:08 Saturation: Site=FA (Femoral Artery) , O2=95.8 %, Hgb=13.2 gm/dl, Condition=Condition 1. Us ed in calculation. 13:21:18 3000 units HEPARIN given in lab by Honorio Argueta RN in Right Antecubital via Peripheral IV. Saturation: Site=PA (Pulmonary Artery) , O2=80.6 %, Hgb=13.2 gm/dl, Condition=Condition 1. Not used in 13::21 calculation. Recorded Pressure: LV, HR=86, Condition=Condition 1 13:21:43 (Left Ventricle) LV 105/2/3 13:24:30 Pressure channel 1 zeroed. 13:24:34 Pressure channel 2 zeroed. Recorded Pressure: LV, Ao, HR=83, Condition=Condition 1 13:25:24 (Left Ventricle) LV 106/1/3, (Aorta) Ao 16/02/11 13:25:39 HR=87 bpm, EVOT=378/70 mmhg, SpO2=97.0 %, Resp=9 B/min Thermo CO: CO=5.6 l/m, HR=86 bpm, Condition=Condition 1. Used in calculation. 13:25:44 Equipment: Description and Size=SWAN TASHI CATHETER FR 7, Type=Bath Probe, CC=0.579 Injectant: Temp=19.0 - 22.0 Celsius, Volume=10.0 ml Thermo CO: CO=5.6 l/m, HR=84 bpm, Condition=Condition 1. Used in calculation. 13:26:17 Equipment: Description and Size=SWAN TASHI CATHETER FR 7, Type=Bath Probe, CC=0.579 Injectant: Temp=19.0 - 22.0 Celsius, Volume=10.0 ml Thermo CO: CO=5.5 l/m, HR=85 bpm, Condition=Condition 1. Used in calculation. 13:26:36 Equipment: Description and Size=SWAN TASHI CATHETER FR 7, Type=Bath Probe, CC=0.579 Injectant: Temp=19.0 - 22.0 Celsius, Volume=10.0 ml Recorded Pressure: PCW, HR=89, Condition=Condition 1 13:27:35 (Pulmonary Capillary Wedge) PCW 3/2/2 Recorded Pressure: LV, RA, HR=88, Condition=Condition 1 13:28:13 (Left Ventricle) LV 107/1/3, (Right Atrium) RA Saturation: Site=PA (Pulmonary Artery) , O2=85.3 %, Hgb=13.2 gm/dl, Condition=Condition 1. Not used in 13:29:06 calculation. Recorded Pressure: LV, PA, HR=82, Condition=Condition 1 13:29:48 (Left Ventricle) LV 99/0/3, (Pulmonary Artery) PA 22/5/10 13:30:38 HR=92 bpm, YPDI=508/70 mmhg, SpO2=98.0 %, Resp=4 B/min, Pain=0, Melisa=10, Ramirez=2 13:31:30 Saturation: Site=PA (Pulmonary Artery) , O2=84.3 %, Hgb=13.2 gm/dl, Condition=Condition 1. Used in calculation. 13:32:37 25 mcg FENTANYL given in lab by Honorio Argueta RN in Right Antecubital via Peripheral IV. Recorded Pressure: LV, RV, HR=91, Condition=Condition 1 13:32:38 (Left Ventricle) LV 110/1/3, (Right Ventricle) RV 24/-3/1 13:33:16 1 mg VERSED given in lab by Honoroi Argueta RN in Right Antecubital via Peripheral IV. 13:33:39 Saturation: Site=RVapx (RV [place]) , O2=85.7 %, Hgb=13.2 gm/dl, Condition=Condition 1. Used i n calculation. 13:34:31 Saturation: Site=Jordon (Mid Right Atrium) , O2=84.8 %, Hgb=13.2 gm/dl, Condition=Condition 1. Used in calculation. 13:35:41 HR=85 bpm, AVCK=748/59 mmhg, SpO2=97.0 %, Resp=12 B/min, Pain=0, Melisa=10, Ramirez=2 13:37:18 Saturation: Site=IVC (Inferior Vena Cava) , O2=85.2 %, Hgb=13.2 gm/dl, Condition=Condition 1. Used in calculation. 13:37:30 Saturation: Site=SVC (Superior Vena Cava) , O2=83 %, Hgb=13.2 gm/dl, Condition=Condition 1. Used in calculation. 13:40:25 Saturation: Site=RAhi (High Right Atrium) , O2=82.6 %, Hgb=13.2 gm/dl, Condition=Condition 1. Used in calculation. 13:40:38 HR=86 bpm, PAQN=480/68 mmhg, SpO2=99.0 %, Resp=11 B/min, Pain=0, Melisa=10, Ramirez=2 13:40:48 25 mcg FENTANYL given in lab by Honorio Argueta RN in Right Antecubital via Peripheral IV. 13:41:34 Saturation: Site=RAlo (Low Right Atrium) , O2=81.2 %, Hgb=13.2 gm/dl, Condition=Condition 1 . Used in calculation. 13:42:26 Desdemona Tashi Catheter Removed 13:43:25 The LV was injected at 10 cc/sec for a total of 30. OMNIPAQUE, 350 MG, 150ML 150ML used. Recorded Pressure: LV, Ao, RV, HR=87, Condition=Condition 1 (Left Ventricle) LV 108/1/5, 13:44:44 (Aorta) Ao 108/66/84, (Right Ventricle) RV -6/-6/-6 13:45:15 Catheter was removed 13:45:16 1 mg VERSED given in lab by Honorio Argueta RN in Right Antecubital via Peripheral IV. A JL 4.0 INFINITI CATHETER FR 5 was advanced over a wire. OMNIPAQUE, 350 MG, 150ML 150ML was us ed for 13:45:16 injections. 13:45:43 HR=86 bpm, VKQP=144/68 mmhg, SpO2=99.0 %, Resp=16 B/min, Pain=0, Melisa=10, Ramirez=2 13:47:32 The LCA was injected and visualized at various angles. OMNIPAQUE, 350 MG, 150ML 150ML used . 13:47:56 Catheter was removed A AR MOD INFINITI CATHETER FR 5 was advanced over a wire. OMNIPAQUE, 350 MG, 150ML 150ML was us ed for 13:48:02 injections. 13:50:07 The RCA was injected and visualized at various angles. OMNIPAQUE, 350 MG, 150ML 150ML used . Recorded Pressure: Ao, HR=91, Condition=Condition 1 13:50:17 (Aorta) Ao 111/74/89 13:50:42 HR=89 bpm, XBEU=347/66 mmhg, SpO2=99.0 %, Resp=14 B/min 13:50:49 Catheter was removed 13:55:43 HR=79 bpm, LRGX=563/62 mmhg, SpO2=98.0 %, Resp=7 B/min, Pain=0, Melisa=10, Ramirez=2 13:57:27 1 mg VERSED given in lab by Honorio Argueta RN in Right Antecubital via Peripheral IV. 13:58:10 An injection in the Fem Art (right) was made through the SHEATH, FR5 TERUMO (10CM) FR 5. 14:00:46 HR=82 bpm, BJOK=184/59 mmhg, SpO2=99.0 %, Resp=10 B/min, Pain=0, Melisa=10, Ramirez=2 14:00:55 VASCADE, FR5 CLOSURE SYSTEM FR 5 placement in the Fem Art (right) 14:05:43 HR=82 bpm, UUQQ=048/63 mmhg, SpO2=99.0 %, Resp=9 B/min, Pain=0, Melisa=10, Ramirez=2 14:10:42 HR=76 bpm, ADOG=396/60 mmhg, GsG9=532.0 %, Resp=10 B/min, Pain=0, Melisa=10, Ramirez=2 14:12:12 vein Sheath removed; pressure applied to access site. 14:15:43 HR=85 bpm, YQUK=110/63 mmhg, SpO2=99.0 %, Resp=12 B/min, Pain=0, Melisa=10, Ramirez=2 14:17:16 Catheter(s) removed without difficulty 14:18:26 No case complications noted. 14:19:03 Bedside Report will be given. 14:19:07 Implantable Device card placed in patient's chart. 14:19:13 A Left and Right Heart Cath was performed. 14:20:43 HR=75 bpm, XQAR=123/65 mmhg, SpO2=99.0 %, Resp=16 B/min, Pain=0, Melisa=10, Ramirez=2 14:23:22 Vitals capture stopped. 14:25:25 Patient moved to [facility] End Study - Contrast Media Used In Study Contrast Total Opened (mL) Total Used (mL) Total Wasted (mL) Omnipaque 70 70 0 End Study - Maximum Contrast Load Max Contrast Load (mL) 352.3 End Study - Radiation Exposure Fluoro Time (minutes) 3.8 End Study - Sheaths Sheaths Pulled By Sheath Hold Time (min) Nany Meléndez End Study - Patient Disposition Complications Transferred To Interventional Outcome No Finishing Operator Holding No attempt made
[2017-07-17] MEDS ORDERED: ONDANSETRON HCL 4 MG/2 ML VIAL ONE (18:24)
[2017-07-17 20:00] VITALS: BP 129/83; PULSE 64; PULSE 77; RESP 18; TEMP 98.2; O2SAT 99
--- NOTE | 2017-07-17 20:41 | MA ---
cc: DAMON HENDERSON MD DATE: 07/17/2017. INDICATIONS FOR THE PROCEDURE: Cardiomyopathy. Dyspnea. Angina. Low to intermediate probability nuclear myocardial perfusion study, congestive heart failure Class III. PROCEDURE PERFORMED: 1. Retrograde left and right heart catheterization with left ventriculography, selective coronary angiography and thermodilution cardiac output determination. 2. Saturation run for cardiac shunt diagnosis. 2. Moderate sedation. ACCESS SITE: Right femoral artery and right femoral vein. EQUIPMENT USED: A [place]-Aris catheter, 5-Mongolian pigtail catheter, 5-Mongolian JL-4 and AR modified coronary artery catheters. MEDICATIONS: 1. Versed IV. 2. Fentanyl IV. 3. Heparin IV. CONTRAST: Omnipaque 70 cc. COMPLICATIONS: None. METHOD OF HEMOSTASIS: VASCADE closure. ESTIMATED BLOOD LOSS: Less than 10 cc. RESULTS A. HEMODYNAMICS: Heart rate 80 beats per minute. Left ventricular end diastolic pressure 5 mmHg. Left ventricle 110/5. Aorta 110/74/89. Mean right atrial pressure 11 mmHg. Mean pulmonary artery wedge pressure 5 mmHg. Right ventricle 25/5. Pulmonary artery 25/7/15. Cardiac output 5.6 liters per minute by thermodilution and cardiac index 3.2 liters per minute. B. SATURATION RUN: Pulmonary artery 84.3. Right ventricular apex 85.7. Right ventricular base 84.8. IVC 85.2. SVC 83.0. Right atrial high 82.6. Right atrial low 81.2. C. LEFT VENTRICULOGRAPHY: Left ventricular ejection fraction 40%, moderate global hypokinesis, normal mitral regurgitation. D. CORONARY ANGIOGRAPHY: The left main coronary artery is patent. The left anterior descending artery is patent. The first diagonal artery is patent. The second diagonal artery is patent. The third diagonal artery is patent. The left circumflex artery is patent, OM-1 patent, OM-2 patent. The right coronary artery is the dominant vessel which is patent, PDA patent, PLV patent. DIAGNOSIS: 1. Widely patent coronary arteries. 2. Moderate left ventricular dysfunction consistent with nonischemic cardiomyopathy. 3. No evidence of cardiac shunt. DISPOSITION: Ms. Bella was found to have no evidence of significant obstructive coronary artery disease. She has moderate global left ventricular systolic dysfunction. There was no evidence of cardiac shunt. There was no evidence of pulmonary hypertension. Will continue her current medical program including therapy for congestive heart failure with Eayd carvedilol and diuresis. I will see her back for follow up in our office after discharge. MD ADILSON Ni/BRANDON /2:14 PM /8:22 PM MATTHEW
[2017-07-17 21:00] VITALS: PULSE 74
[2017-07-17 22:00] VITALS: PULSE 78
[2017-07-17] MEDS ORDERED: LORazepam 0.5 MG TAB PO PRN (22:15)
[2017-07-17] MEDS: SACUBITRIL/VALSARTAN 24 MG-26 MG TAB PO SCH (22:20)
[2017-07-17] MEDS: CARVEDILOL 6.25 MG TAB PO SCH (22:20)
[2017-07-17 23:00] VITALS: BP 109/66; PULSE 70; PULSE 78; RESP 18; TEMP 98; O2SAT 97
[2017-07-18] VITALS (15 sets, daily range): BP systolic 102–122; BP diastolic 55–74; PULSE 60–95; RESP 14–18; TEMP 97.4–98.7; O2SAT 96–99
[2017-07-18] MEDS: SACUBITRIL/VALSARTAN 24 MG-26 MG TAB PO SCH (08:47)
[2017-07-18] MEDS: CARVEDILOL 6.25 MG TAB PO SCH (08:47)
[2017-07-18] MEDS ORDERED: ETHINYL ESTRADIOL PO SCH (09:00)
[2017-07-18] MEDS ORDERED: FUROSEMIDE 20 MG TAB PO SCH (09:00)
[2017-07-18] MEDS ORDERED: NORETHINDRONE PO SCH (09:00)
[2017-07-18] MEDS ORDERED: FERROUS FUMARATE PO SCH (09:00)
--- NOTE | 2017-07-18 15:05 | PD.CARD.PN ---
Subjective Subjective Remarks Denies needs. Wants to go home. Objective Medications Current Medications Medications (Trade) Dose Ordered Sig/Wallace Route Start Time Stop Time Status Last Admin Sodium Chloride 1,000 ml @ 30 mls/hr Q24H IV 07/17/17 11:00 (Coreg) 6.25 mg BID PO 07/17/17 22:03 07/18/17 08:47 (Lasix) 20 mg DAILY PO 07/18/17 09:00 07/18/17 08:47 (Ativan) 0.5 mg BID PRN PO 07/17/17 22:15 Patient Own Medication PT OWN MED: Ethinyl Estrad... DAILY PO 07/18/17 09:00 Future Hold (Entresto 24-26 Mg) 1 tab DAILY PO 07/17/17 22:08 07/18/17 08:47 Vital Signs / I&O Vital Signs Date Time Temp Pulse Resp B/P (MAP) Pulse Ox O2 Delivery O2 Flow Rate FiO2 07/18/17 14:01 61 07/18/17 13:07 95 07/18/17 12:37 67 07/18/17 12:37 97.5 73 14 122/71 (88) 99 07/18/17 10:00 89 07/18/17 09:04 77 07/18/17 08:00 74 07/18/17 07:00 72 07/18/17 07:00 97.4 71 14 105/55 (72) 99 07/18/17 06:00 79 07/18/17 05:00 60 07/18/17 04:00 60 07/18/17 03:00 98.7 64 18 102/56 (71) 98 07/18/17 03:00 86 07/18/17 02:00 62 07/18/17 01:00 70 07/18/17 00:00 85 07/17/17 23:00 78 07/17/17 23:00 98.0 70 18 109/66 (80) 97 07/17/17 22:00 78 07/17/17 21:00 74 07/17/17 20:00 77 07/17/17 20:00 98.2 64 18 129/83 (98) 99 I/O 07/17/17 07/17/17 07/17/17 07/18/17 07/18/17 07/18/17 07:00 15:00 23:00 07:00 15:00 23:00 Intake Total 240 ml Output Total 550 ml Balance -310 ml Intake Oral 240 ml Output Urine Total 550 ml Physical Exam GENERAL: Awake, alert. SKIN: Warm and dry. R groin dressing cdi. HEAD: Atraumatic. Normocephalic. EYES: Pupils equal and round. No scleral icterus. No injection or drainage. ENT: No nasal bleeding or discharge. Mucous membranes pink and moist. NECK: Trachea midline. No JVD. CARDIOVASCULAR: Regular rate and rhythm. R groin wnl. RESPIRATORY: No accessory muscle use. Clear to auscultation. Breath sounds equal bilaterally. GASTROINTESTINAL: Abdomen soft, non-tender, nondistended. MUSCULOSKELETAL: Extremities without clubbing, cyanosis, or edema. No obvious deformities. NEUROLOGICAL: Awake and alert. No obvious cranial nerve deficits. Motor grossly within normal limits. Five out of 5 muscle strength in the arms and legs. Normal speech. PSYCHIATRIC: Appropriate mood and affect; insight and judgment normal. Laboratory Current Medications Medications (Trade) Dose Ordered Sig/Wallace Route Start Time Stop Time Status Last Admin Sodium Chloride 1,000 ml @ 30 mls/hr Q24H IV 07/17/17 11:00 (Coreg) 6.25 mg BID PO 07/17/17 22:03 07/18/17 08:47 (Lasix) 20 mg DAILY PO 07/18/17 09:00 07/18/17 08:47 (Ativan) 0.5 mg BID PRN PO 07/17/17 22:15 Patient Own Medication PT OWN MED: Ethinyl Estrad... DAILY PO 07/18/17 09:00 Future Hold (Entresto 24-26 Mg) 1 tab DAILY PO 07/17/17 22:08 07/18/17 08:47 Assessment and Plan Assessment and Plan Nonischemic cardiomyopathy S/P cardiac cath with widely patent coronaries, EF 40% consistent with non- ischemic cardiomyopathy. Continue entresto, coreg, diuretic. Follow up with Dr. Mcfarlane 1 week. Code Status Full Discussed Condition With Sylvie Yap Jul 18, 2017 15:05
--- NOTE | 2017-07-18 16:03 | EKG ---
Date Performed: 07/18/2017 Time Performed: 03:31:08 PTAGE: 42 years EKG: Sinus rhythm with borderline 1st degree A-V block Left axis deviation Left bundle branch block Compared to prior tracing no significant change Abnormal ECG PREVIOUS TRACING : 01/19/2017 21.41 DOCTOR: Jono Mendoza Interpretating Date/Time 07/18/2017 16:02:04
== END 2017-07-18 15:59 | disposition home or self-care (01) ==
LOC: HCAT 08:55 → HDIC 08:56 → HCIS 19:15 → HCAT 07-18 15:59
PROVIDERS: ATTEND Internal Medicine Interventional Cardiology
DX: I20.0 Unstable angina (principal); I42.9 Cardiomyopathy, unspecified; I50.9 Heart failure, unspecified; I44.7 Left bundle-branch block, unspecified; I34.0 Nonrheumatic mitral (valve) insufficiency; I36.1 Nonrheumatic tricuspid (valve) insufficiency; F41.1 Generalized anxiety disorder; F17.200 Nicotine dependence, unspecified, uncomplicated
CPT/HCPCS: 80048; 82810; 84702; 85025; 85610; 85730; 93005; 93460; 99152; 99153; C1760; C1769; C1893; G0269; J1644; J2250; J2405; J3010; Q9967